=== PATIENT | female | born 1950 | race African-American/Black ===

== ENCOUNTER 2020-12-21 15:32 | Inpatient (IN) | payer BC, MEDICARE ==
[~2020-12-21] VITALS: Ht 162.6 cm; Wt 60.8 kg
[2020-12-21] MEDS ORDERED: SODIUM CHLORIDE 0.9% 1,000 ML IV ONE (16:30)
[2020-12-21 16:51] LABS: BASOPHILS % 0.8 % (0.0-2.0); EOSINOPHILS % 0.7 % (0.0-5.0); HEMATOCRIT. 43.5 % (36.0-48.0); HEMOGLOBIN. 14.9 g/dL (12.0-16.0); LYMPHOCYTES % 33.8 % (20.0-50.0); MEAN CORPUSCULAR HEMOGLOBIN 30.8 pg (28.0-32.0); MEAN CORPUSCULAR VOLUME 89.8 fL (81.0-99.0); MONOCYTES % 11.2 % (2.0-8.0); NEUTROPHILS % 53.5 % (40.0-76.0); PLATELET 228 x1000/uL (130-400); RED BLOOD CELL COUNT 4.85 mill/uL (4.2-5.4); RED CELL DISTRIBUTION WIDTH 13.8 % (11.6-14.6)
[2020-12-21 16:54] LABS: CHLORIDE 102 mEq/L (98-107)
[2020-12-21] MEDS ORDERED: HALOPERIDOL LACTATE 5MG/ML VIAL IM ONE ×2 (18:15→20:45)
[2020-12-22 03:05] VITALS: BP 135/77
[2020-12-22 07:17] LABS: BASOPHILS % 0.8 % (0.0-2.0); EOSINOPHILS % 2.1 % (0.0-5.0); HEMATOCRIT. 44.4 % (36.0-48.0); HEMOGLOBIN. 14.9 g/dL (12.0-16.0); MEAN CORPUSCULAR HEMOGLOBIN 30.9 pg (28.0-32.0); MEAN CORPUSCULAR VOLUME 91.8 fL (81.0-99.0); MEAN PLATELET VOLUME 8.9 fl (7.4-10.4); MONOCYTES % 10.2 % (2.0-8.0); NEUTROPHILS % 43.9 % (40.0-76.0); PLATELET 198 x1000/uL (130-400); RED BLOOD CELL COUNT 4.84 mill/uL (4.2-5.4); RED CELL DISTRIBUTION WIDTH 13.8 % (11.6-14.6)
[2020-12-22 08:00] VITALS: BP 160/88
[2020-12-22 12:00] VITALS: BP 151/82
[2020-12-22] MEDS ORDERED: IPRATROPIUM/ALBUTEROL 0.5-3(2.5)MG/3ML NEB HHN PRN (13:30)
[2020-12-22] MEDS ORDERED: ACETAMINOPHEN 325MG TABLET PO PRN (13:30)
[2020-12-22] MEDS ORDERED: HYDROCODONE/ACETAMINOPHEN 5/325MG TABLET PO PRN (13:30)
[2020-12-22] MEDS ORDERED: ONDANSETRON HCL 4MG/2ML INJ IV PRN (13:30)
[2020-12-22] MEDS ORDERED: CLONIDINE 0.1MG TABLET PO PRN (13:30)
[2020-12-22] MEDS ORDERED: DOCUSATE SODIUM 100MG CAPSULE PO PRN (13:30)
[2020-12-22] MEDS ORDERED: NALOXONE HCL 0.4MG/ML VIAL IV PRN (13:45)
[2020-12-22 16:00] VITALS: BP 154/95
[2020-12-22 17:44] LABS: FOLIC ACID (FOLATE) SERUM > 20.00 ng/mL (>5.38)
[2020-12-22 17:52] LABS: VITAMIN B12 SERUM 477 pg/mL (211-911)
[2020-12-22 20:00] VITALS: BP 152/95
[2020-12-22] MEDS: LORAZEPAM 0.5MG TABLET PO PRN (20:26)
[2020-12-22] MEDS: ATORVASTATIN CALCIUM 20MG TABLET PO SCH (21:07)
[2020-12-22] MEDS: ACETAMINOPHEN 325MG TABLET PO PRN (22:18)
[2020-12-23] VITALS: BP 165/70
[2020-12-23 05:15] VITALS: BP 176/95
[2020-12-23] MEDS: SODIUM CHLORIDE 0.9% 1,000 ML IV SCH ×2 (06:40→23:20)
[2020-12-23 08:00] VITALS: BP 135/63
[2020-12-23 12:00] VITALS: BP 119/81
[2020-12-23 16:00] VITALS: BP 110/89
[2020-12-23] MEDS: LORAZEPAM 0.5MG TABLET PO PRN ×2 (20:13→23:08)
[2020-12-23] MEDS: HALOPERIDOL LACTATE 5MG/ML VIAL IM PRN (21:40)
[2020-12-23] MEDS: MEMANTINE HCL 5MG TABLET PO SCH (21:40)
[2020-12-23] MEDS: ATORVASTATIN CALCIUM 20MG TABLET PO SCH (21:41)
[2020-12-24 01:11] LABS: CLARITY URINE CLEAR (CLEAR); COLOR URINE YELLOW (YELLOW); KETONES URINE NEGATIVE (NEGATIVE); LEUKOCYTE ESTERASE URINE 2+ (NEGATIVE); NITRITE URINE NEGATIVE (NEGATIVE); OCCULT BLOOD URINE NEGATIVE (NEGATIVE); PROTEIN URINE NEGATIVE (NEGATIVE); SPECIFIC GRAVITY URINE 1.012 (1.005-1.030); UROBILINOGEN URINE 0.2 E.U./dL (0.2-1.0)
[2020-12-24] MEDS: HALOPERIDOL LACTATE 5MG/ML VIAL IM PRN (05:49)
[2020-12-24] MEDS: MEMANTINE HCL 5MG TABLET PO SCH ×2 (09:04→20:32)
[2020-12-24] MEDS: CEFTRIAXONE 1,000 MG in DEXTROSE 5% WATER 50 ML IV SCH (11:00)
[2020-12-24 12:00] VITALS: BP 170/103
[2020-12-24] MEDS: NITROFURANTOIN 100MG M/M CAPSULE PO SCH ×2 (12:46→20:32)
[2020-12-24] MEDS: SODIUM CHLORIDE 0.9% 1,000 ML IV SCH (14:56)
[2020-12-24 16:00] VITALS: BP 160/92
[2020-12-24] MEDS: LORAZEPAM 0.5MG TABLET PO PRN (18:29)
[2020-12-24 19:27] LABS: BASOPHILS % 1.1 % (0.0-2.0); EOSINOPHILS % 1.1 % (0.0-5.0); HEMOGLOBIN. 14.3 g/dL (12.0-16.0); LYMPHOCYTES % 36.8 % (20.0-50.0); MEAN CORPUSCULAR HEMOGLOBIN 30.8 pg (28.0-32.0); MEAN CORPUSCULAR VOLUME 90.7 fL (81.0-99.0); MEAN PLATELET VOLUME 8.5 fl (7.4-10.4); MONOCYTES % 9.6 % (2.0-8.0); NEUTROPHILS % 51.4 % (40.0-76.0); PLATELET 258 x1000/uL (130-400); RED BLOOD CELL COUNT 4.63 mill/uL (4.2-5.4)
[2020-12-24 20:00] VITALS: BP 163/104
[2020-12-24] MEDS: ATORVASTATIN CALCIUM 20MG TABLET PO SCH (20:32)
[2020-12-25] VITALS: BP 142/80
[2020-12-25 04:00] VITALS: BP 135/76
[2020-12-25 08:00] VITALS: BP 154/88
[2020-12-25] MEDS: SODIUM CHLORIDE 0.9% 1,000 ML IV SCH (08:40)
[2020-12-25] MEDS: CEFTRIAXONE 1,000 MG in DEXTROSE 5% WATER 50 ML IV SCH (08:43)
[2020-12-25] MEDS: NITROFURANTOIN 100MG M/M CAPSULE PO SCH ×2 (09:29→22:07)
[2020-12-25] MEDS: MEMANTINE HCL 5MG TABLET PO SCH ×2 (09:29→22:07)
[2020-12-25 12:00] VITALS: BP 140/74
[2020-12-25] MEDS ORDERED: MEMA5TAB7 PO (13:58)
[2020-12-25] MEDS ORDERED: ATOR20TA PO (13:58)
[2020-12-25] MEDS ORDERED: NITR100C11 PO (13:58)
[2020-12-25] MEDS ORDERED: ASPI-1406 MT (14:01)
[2020-12-25 16:00] VITALS: BP 156/88
[2020-12-25 20:00] VITALS: BP 120/72
[2020-12-25] MEDS: ACETAMINOPHEN 325MG TABLET PO PRN (22:06)
[2020-12-25] MEDS: ATORVASTATIN CALCIUM 20MG TABLET PO SCH (22:08)
[2020-12-26 04:00] VITALS: BP 141/79
[2020-12-26 08:00] VITALS: BP 134/62
[2020-12-26] MEDS: CEFTRIAXONE 1,000 MG in DEXTROSE 5% WATER 50 ML IV SCH (08:33)
[2020-12-26] MEDS: MEMANTINE HCL 5MG TABLET PO SCH ×2 (09:39→21:44)
[2020-12-26] MEDS: NITROFURANTOIN 100MG M/M CAPSULE PO SCH ×2 (09:39→21:44)
[2020-12-26 12:00] VITALS: BP 182/92
[2020-12-26 16:00] VITALS: BP 164/94
[2020-12-26] MEDS: SODIUM CHLORIDE 0.9% 1,000 ML IV SCH (17:46)
[2020-12-26 20:00] VITALS: BP 135/87
[2020-12-26] MEDS: LORAZEPAM 0.5MG TABLET PO PRN (21:44)
[2020-12-26] MEDS: ATORVASTATIN CALCIUM 20MG TABLET PO SCH (21:44)
[2020-12-27] VITALS: BP 130/76
[2020-12-27 04:00] VITALS: BP_SYST 129; BP_SYST 131; BP_DIAS 71; BP_DIAS 99
[2020-12-27 08:00] VITALS: BP 106/55
[2020-12-27] MEDS: CEFTRIAXONE 1,000 MG in DEXTROSE 5% WATER 50 ML IV SCH (09:00)
[2020-12-27] MEDS: MEMANTINE HCL 5MG TABLET PO SCH ×2 (09:46→21:00)
[2020-12-27] MEDS: NITROFURANTOIN 100MG M/M CAPSULE PO SCH ×2 (09:46→21:00)
[2020-12-27] MEDS: SODIUM CHLORIDE 0.9% 1,000 ML IV SCH (09:47)
[2020-12-27 12:00] VITALS: BP 118/66
[2020-12-27 16:00] VITALS: BP 130/73
[2020-12-27 20:00] VITALS: BP 144/81
[2020-12-27] MEDS: HALOPERIDOL LACTATE 5MG/ML VIAL IM PRN (20:40)
[2020-12-27] MEDS: ATORVASTATIN CALCIUM 20MG TABLET PO SCH (21:00)
[2020-12-28] MEDS ORDERED: HALOPERIDOL LACTATE 5MG/ML VIAL IM NR (00:30)
[2020-12-28] MEDS: SODIUM CHLORIDE 0.9% 1,000 ML IV SCH (03:20)
[2020-12-28 08:00] VITALS: BP 111/71
[2020-12-28] MEDS: CEFTRIAXONE 1,000 MG in DEXTROSE 5% WATER 50 ML IV SCH (09:00)
[2020-12-28] MEDS: NITROFURANTOIN 100MG M/M CAPSULE PO SCH (09:27)
[2020-12-28] MEDS: MEMANTINE HCL 5MG TABLET PO SCH (09:27)
[2020-12-28 12:00] VITALS: BP 125/81
== END 2020-12-28 13:20 | disposition home or self-care (01) | DRG 689 ==
LOC: ER 15:32 → 6EST 12-22 00:31 → ENRESERV 12-22 02:01 → 6EST 12-25 00:49
PROVIDERS: ADMIT Internal Medicine; ATTEND Internal Medicine
PROC: 4A10X4Z Monitoring of Central Nervous Electrical Activity, External Approach (ICD-10-PCS; principal; 2020-12-24)
DX: N39.0 Urinary tract infection, site not specified (principal); G93.41 Metabolic encephalopathy; N17.9 Acute kidney failure, unspecified; F02.81 Dementia in other diseases classified elsewhere, unspecified severity, with behavioral disturbance; E78.5 Hyperlipidemia, unspecified; I10 Essential (primary) hypertension; Z60.2 Problems related to living alone; M17.12 Unilateral primary osteoarthritis, left knee; R62.7 Adult failure to thrive; G31.9 Degenerative disease of nervous system, unspecified; G30.8 Other Alzheimer's disease; Z53.20 Procedure and treatment not carried out because of patient's decision for unspecified reasons; Z20.822 Contact with and (suspected) exposure to COVID-19; Z82.49 Family history of ischemic heart disease and other diseases of the circulatory system; Z83.3 Family history of diabetes mellitus; Z86.73 Personal history of transient ischemic attack (TIA), and cerebral infarction without residual deficits; Z68.23 Body mass index [BMI] 23.0-23.9, adult; R79.89 Other specified abnormal findings of blood chemistry
CPT/HCPCS: 36415; 70551; 71045; 73560; 80048; 80053; 80061; 81003; 82140; 82607; 82746; 83036; 83605; 83735; 84443; 84484; 85025; 86850; 86900; 87426; 93005; 95816; 97162; 97166; 99285; J0696; J1630; J7030; J7060